=== PATIENT | female | born 1930 | race Caucasian/White ===

== ENCOUNTER 2016-11-06 20:03 | Observation (INO) | payer MEDICARE ==
[~2016-11-06] VITALS: Ht 152.4 cm; Wt 76.3 kg
[~2016-11-06 20:03] MED LIST: ALBU1AER INH; ALLE12TA PO; SIMV20 PO
[2016-11-06 20:06] VITALS: BP 157/81; PULSE 87; RESP 18; TEMP 97.9; O2SAT 98
[2016-11-06] MEDS ORDERED: SIMV40TA PO (20:23)
[2016-11-06] MEDS ORDERED: ALBUAER3 INH (20:23)
--- NOTE | 2016-11-06 20:27 | PD ---
HPI Chief Complaint: Fall Time Seen by Provider: 20:20 Travel History International Travel<30 days: No Contact w/Intl Traveler<30days: No Traveled to known affect area: No History of Present Illness HPI 86 years old female complains of right shoulder and right upper arm pain. Patient states that she fell this evening. Patient denies loss of consciousness. Patient denies any headache or neck pain. Patient denies any chest pain or shortness of breath. Patient denies abdominal pain. Patient denies any back pain. Patient denies extremity pain. Patient denies any focal weakness or numbness of the extremity. Patient states that the pain is sharp severe pain localized to right shoulder right upper arm. Patient denies any pain radiation. On a scale of 1-10 the pain is a 10. PFSH Past Medical History Cancer: No High Cholesterol: Yes COPD: Yes Diabetes: No Glaucoma: No Hepatitis: No Hiatal Hernia: No Hypertension: No Medical other: Yes (reflux) Respiratory: Yes (ASTHMA; COPD) Thyroid Disease: No Tetanus Vaccination: < 5 Years Influenza Vaccination: Yes Past Surgical History Eye Surgery: Yes (cataract) Pacemaker: No Social History Alcohol Use: Yes (occ) Tobacco Use: No Substance Use: No Allergies-Medications (Allergen,Severity, Reaction): Coded Allergies: No Known Allergies (Verified , 11/06/16) Reported Meds & Prescriptions Reported Meds & Active Scripts Active Reported Proair Hfa 8.5 GM Inh (Albuterol Sulfate) 90 Mcg/Act Aer 2 Puff INH BID PRN 108 mcg/actuation Simvastatin 40 Mg Tab 40 Mg PO HS Review of Systems General / Constitutional: No: Fever Eyes: No: Visual changes HENT: No: Headaches Cardiovascular: No: Chest Pain or Discomfort Respiratory: No: Shortness of Breath Gastrointestinal: No: Abdominal Pain Genitourinary: No: Dysuria Musculoskeletal: Positive: Pain Skin: No Rash Neurologic: No: Weakness Psychiatric: No: Depression Endocrine: No: Polydipsia Hematologic/Lymphatic: No: Easy Bruising Physical Exam Narrative GENERAL: Well-nourished, well-developed patient. SKIN: Warm and dry. HEAD: Normocephalic. EYES: No scleral icterus. No injection or drainage. NECK: Supple, trachea midline. No JVD or lymphadenopathy. CARDIOVASCULAR: Regular rate and rhythm without murmurs, gallops, or rubs. RESPIRATORY: Breath sounds equal bilaterally. No accessory muscle use. GASTROINTESTINAL: Abdomen soft, non-tender, nondistended. MUSCULOSKELETAL: Patient has moderate tenderness diffuse over the right shoulder and right upper arm. Mild tenderness on palpation right elbow. Full range of motion of the wrist and fingers. Sensory motor function distally intact. BACK: Nontender without obvious deformity. No CVA tenderness. Neurologic exam normal. Data Data Last Documented VS Vital Signs Date Time Temp Pulse Resp B/P Pulse Ox O2 Delivery O2 Flow Rate FiO2 11/06/16 20:23 Room Air 11/06/16 20:06 97.9 87 18 157/81 98 Orders Humerus (Min 2vws) (11/06/16 20:23) Shoulder, Limited(2vws) (11/06/16 20:23) Electrocardiogram (11/06/16 21:38) Complete Blood Count With Diff (11/06/16 21:38) Basic Metabolic Panel (Bmp) (11/06/16 21:38) Prothrombin Time / Inr (Pt) (11/06/16 21:38) Act Partial Throm Time (Ptt) (11/06/16 21:38) Urinalysis - C+S If Indicated (11/06/16 21:38) Chest, Single Ap (11/06/16 21:38) Iv Access Insert/Monitor (11/06/16 21:38) Ecg Monitoring (11/06/16 21:38) Oximetry (11/06/16 21:38) Sodium Chlor 0.9% 1000 Ml Inj (Ns 1000 M (11/06/16 21:45) MDM Medical Decision Making Medical Screen Exam Complete: Yes Emergency Medical Condition: Yes Interpretation(s) Last Impressions Shoulder X-Ray 11/06/162022 Signed Impressions: Service Date/Time: Sunday, November 06, 2016 20:56 - CONCLUSION: Comminuted fracture of the greater tuberosity and surgical neck of the right humerus. Adolfo Thacker MD Humerus X-Ray 11/06/162022 Signed Impressions: Service Date/Time: Sunday, November 06, 2016 20:52 - CONCLUSION: Comminuted and moderately displaced surgical neck and greater tuberosity fracture of the right humerus. Adolfo Thacker MD 21:40 PM. Differential Diagnosis Differential diagnosis including contusion, fracture, dislocation. Narrative Course 86 years old female with right shoulder and right upper arm injury. Status post fall. Sling and swath. Patient will be admitted to medical service and orthopedist consultation. Diagnosis Primary Impression: Fracture of right humerus Qualified Code: S42.231A - Closed 3-part fracture of surgical neck of right humerus, initial encounter Admitting Information Admitting Physician Requests: Admit Anthony Evans MD Nov 06, 2016 20:27
--- NOTE | 2016-11-06 21:10 | RADHPO ---
EXAM DATE/TIME: 11/06/2016 20:52 [facility] COMPARISON: No previous studies available for comparison. INDICATIONS : Right arm pain after fall. MEDICAL HISTORY : None. SURGICAL HISTORY : None. ENCOUNTER: Initial ACUITY: 1 day PAIN SCORE: 10/10 LOCATION: Right proximal humerus FINDINGS: There is a comminuted fracture of the proximal right humerus involving the surgical neck and greater tuberosity. There is lateral displacement and angulation of the head with respect to the shaft. There is also at least mild impaction/foreshortening. No subluxation. The rest of the right humerus is int act. CONCLUSION: Comminuted and moderately displaced surgical neck and greater tuberosity fracture of the right humdenyu radha Adolfo Thacker MD on November 06, 2016 at 21:07 Board Certified Radiologist. This report was verified electronically.
--- NOTE | 2016-11-06 21:11 | RADHPO ---
EXAM DATE/TIME: 11/06/2016 20:56 [facility] COMPARISON: No previous studies available for comparison. INDICATIONS : Right shoulder pain after fall. MEDICAL HISTORY : None. SURGICAL HISTORY : None. ENCOUNTER: Initial ACUITY: 1 day PAIN SCORE: 10/10 LOCATION: Right proximal shoulder FINDINGS: There is a comminuted fracture of the proximal right humerus involves the surgical neck and greater t uberosity. There is mild lateral displacement and moderate lateral angulation deformity. Most of the greater tuberosity fracture fragments are displaced superiorly. No subluxations are demonstrated. The glenoid and the rest of the scapula are intact. CONCLUSION: Comminuted fracture of the greater tuberosity and surgical neck of the right humerus. Adolfo Thacker MD on November 06, 2016 at 21:08 Board Certified Radiologist. This report was verified electronically.
[2016-11-06] MEDS ORDERED: ACETAMINOPHEN 325 MG TAB PO PRN (21:45)
[2016-11-06] MEDS ORDERED: SODIUM CHLOR 0.9% 1000 ML INJ 1,000 ML IV SCH (21:45)
[2016-11-06] MEDS ORDERED: SODIUM CHLORIDE 0.9% FLUSH 5 ML FLUSH IVF PRN (21:45)
[2016-11-06] MEDS ORDERED: RESP: ALBUTEROL 2.5 MG/IPRATROPIUM 0.5 MG NEB (PRN) NEB (21:45)
[2016-11-06] MEDS ORDERED: ONDANSETRON HCL 4 MG/2 ML VIAL IV PRN (21:45)
--- NOTE | 2016-11-06 22:12 | RADHPO ---
EXAM DATE/TIME: 11/06/2016 22:03 [facility] COMPARISON: No previous studies available for comparison. INDICATIONS : Short of breath. MEDICAL HISTORY : None. SURGICAL HISTORY : None. ENCOUNTER: Initial ACUITY: 1 day PAIN SCORE: 0/10 LOCATION: Bilateral chest FINDINGS: A single view of the chest demonstrates the lungs to be symmetrically aerated without evidence of mas s, infiltrate or effusion. The cardiomediastinal contours are unremarkable. Osseous structures are intact. CONCLUSION: No evidence of acute cardiopulmonary disease. Adolfo Thacker MD on November 06, 2016 at 22:10 Board Certified Radiologist. This report was verified electronically.
[2016-11-06 22:27] LABS: GLUCOSE,URINE NEG (NEG); KETONE, URINE NEG (NEG); NITRITE,URINE NEG (NEG); PH, URINE 6.5 (5.0-8.5)
[2016-11-06 22:27] LABS: AUTOMATED NEUTROPHIL # 11.6 TH/MM3 (1.8-7.7); BASOPHIL # 0.1 TH/MM3 (0-0.2); BASOPHIL % 0.7 % (0.0-2.0); EOSINOPHIL # 0.1 TH/MM3 (0-0.4); EOSINOPHIL % 0.9 % (0.0-4.0); HEMATOCRIT 38.4 % (35.0-46.0); HEMO FLAGS DIFF FINAL; LYMPH % 13.9 % (9.0-44.0); MEAN CELL VOLUME 86.8 FL (80.0-100.0); MEAN CORPUSCULAR HEMOGLOBIN 29.8 PG (27.0-34.0); MEAN CORPUSCULAR HGB CONC 34.3 % (32.0-36.0); MONO % 5.9 % (0.0-8.0); NEUT % 78.6 % (16.0-70.0); PLATELET COUNT 263 TH/MM3 (150-450); RED BLOOD COUNT 4.42 MIL/MM3 (4.00-5.30); RED CELL DISTRIBUTION WIDTH 12.5 % (11.6-17.2); WHITE BLOOD COUNT 14.7 TH/MM3 (4.0-11.0)
[2016-11-06 22:28] LABS: BLOOD, URINE MOD (NEG); URINE COLOR STRAW (YELLW/STRAW)
[2016-11-06 22:29] LABS: BACTERIA, URINE RARE /hpf; COMMENT (UR) CULT NOT INDICATED; CULTURE IF INDICATED CULT NOT INDICATED; RBC, URINE 0-3 /hpf (0-3); WBC, URINE 0-2 /hpf (0-5)
[2016-11-06 22:35] LABS: POTASSIUM 3.6 MEQ/L (3.5-5.1)
[2016-11-06 22:38] LABS: BICARBONATE 30.1 MEQ/L (21.0-32.0)
[2016-11-06 22:39] LABS: INTERNATIONAL NORMALIZED RATIO 0.9 RATIO; PROTHROMBIN TIME - PATIENT 9.8 SEC (9.8-11.6)
--- NOTE | 2016-11-06 23:19 | EKG ---
Date Performed: 11/06/2016 Time Performed: 21:46:54 PTAGE: 86 years EKG: Sinus rhythm rSr'(V1) - probable normal variant ST junctional depression is nonspecific Borderline ECG NO PREVIOUS TRACING DOCTOR: Umer Dey Interpretating Date/Time 11/06/2016 23:18:19
[2016-11-07] MEDS ORDERED: ACETAMINOPHEN/HYDROcodone 325 MG/5 MG TAB PO ONE
[2016-11-07] MEDS ORDERED: MORPHINE SULFATE 4 MG/ML INJ IV PUSH PRN
[2016-11-07 01:47] VITALS: BP 166/77; PULSE 85; RESP 20; TEMP 98.1; O2SAT 97
[2016-11-07 04:49] VITALS: BP 144/69; PULSE 87; RESP 20; TEMP 97.6; O2SAT 97
--- NOTE | 2016-11-07 06:48 | PD.ORT.PN ---
Subjective Subjective Remarks s/p fall in parking lot leaving [employer] right shoulder pain. no other complaints. Objective Vitals Vital Signs Date Time Temp Pulse Resp B/P Pulse Ox O2 Delivery O2 Flow Rate FiO2 11/07/16 04:49 97.6 87 20 144/69 97 11/07/16 01:47 98.1 85 20 166/77 97 11/06/16 20:23 Room Air 11/06/16 20:06 97.9 87 18 157/81 98 Result Diagram: 11/06/16219911/06/162199 Other Results Laboratory Tests Test 11/06/16 22:00 Prothrombin Time 9.8 SEC (9.8-11.6) Prothromb Time International 0.9 RATIO Ratio Imaging Last 24 hours Impressions Chest X-Ray 11/06/162137 Signed Impressions: Service Date/Time: Sunday, November 06, 2016 22:03 - CONCLUSION: No evidence of acute cardiopulmonary disease. Adolfo Thacker MD Shoulder X-Ray 11/06/162022 Signed Impressions: Service Date/Time: Sunday, November 06, 2016 20:56 - CONCLUSION: Comminuted fracture of the greater tuberosity and surgical neck of the right humerus. Adolfo Thacker MD Humerus X-Ray 11/06/162022 Signed Impressions: Service Date/Time: Sunday, November 06, 2016 20:52 - CONCLUSION: Comminuted and moderately displaced surgical neck and greater tuberosity fracture of the right humerus. Adolfo Thacker MD Objective Remarks RUE: +swelling of shoulder. tender to touch. no pain in elbow or hand. NVI Assessment & Plan Assessment and Plan 1) Right Proximal Humerus fx -nonop -ortho cleared for Dc -resume diet -f/u 7-10 days -consult dictated Duane Doherty Nov 07, 2016 06:48
[2016-11-07] MEDS ORDERED: CALCTAB19 PO (06:50)
[2016-11-07] MEDS ORDERED: VITA2000 PO (06:50)
[2016-11-07] MEDS ORDERED: HYDR-3288 PO (06:50)
[2016-11-07 07:49] VITALS: BP 140/65; PULSE 85; RESP 18; TEMP 98.3; O2SAT 97
[2016-11-07] MEDS ORDERED: ACETAMINOPHEN/HYDROcodone 325 MG/5 MG TAB PO PRN (08:45)
--- NOTE | 2016-11-07 08:49 | HHI.HP ---
[place] [facility] [facility] Primary [place] Physician Oliverio Ni MD Admission Diagnosis fracture right humerus Chief Complaint: Right humerus fracture Travel History International Travel<30 Days: No Contact w/Intl Traveler <30 Da: No Traveled to Known Affected Are: No History of Present Illness Mrs. Montalvo is a pleasant 86 y/o female with COPD, Hyperlipidemia, and CKD stage 2 who presented to the ED at [facility] on 11/06/16 with complaints of right shoulder and right upper arm pain. She states that she tripped and fell over a cement parking block yesterday evening leaving [employer]. She fell onto her right shoulder. Patient denies loss of consciousness, dizziness, lightheadedness, headache or neck pain. Patient denies any focal weakness or numbness of the extremity. In the ED the pt was found to have a comminuted and moderately displaced surgical neck and greater tuberosity fracture of the right humerus. Pt has been seen by Orthopedic surgery and has been recommended nonoperative management. Pts pain is currently controlled. She has been cleared for discharge by Ortho and pt reports that her daughter lives across the street and is available to stay with her and help with her ADLs. Review of Systems Constitutional: DENIES: Fever, Chills, Dizziness Ears, nose, mouth, throat: DENIES: Vertigo Respiratory: DENIES: Cough, Shortness of breath Cardiovascular: DENIES: Chest pain, Dyspnea on Exertion Gastrointestinal: DENIES: Abdominal pain Musculoskeletal: COMPLAINS OF: Joint pain Integumentary: DENIES: Rash Hematologic/lymphatic: DENIES: Bruising Neurologic: DENIES: Headache Past Family Social History Past Medical History Hyperlipidemia CKD, stage II Osteoarthritis COPD Past Surgical History Cataract surgery, right eye Reported Medications Calcium 600+D 200 (Calcium Carbonate-Vitamin D) 600-200 Mg-Unit Tab 1 Tab PO BID Vitamin D3 (Cholecalciferol) 2,000 Unit Cap 2,000 Units PO DAILY [place] (Hydrocodone-Acetaminophen) 7.5-325 mg Tab 1 Tab PO Q4H PRN Proair Hfa 8.5 GM Inh (Albuterol Sulfate) 90 Mcg/Act Aer 2 Puff INH BID PRN 108 mcg/actuation Simvastatin 40 Mg Tab 40 Mg PO HS Allergies: Coded Allergies: No Known Allergies (Verified , 11/06/16) Family History Noncontributory Social History Denies any alcohol, tobacco or illicit drug use Pt is very active and performs all her own ADLs normally 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 She has a daughter and granddaughter who live close to her. Physical Exam Vital Signs Vital Signs Date Time Temp Pulse Resp B/P Pulse Ox O2 Delivery O2 Flow Rate FiO2 11/07/16 07:49 98.3 85 18 140/65 97 11/07/16 04:49 97.6 87 20 144/69 97 11/07/16 01:47 98.1 85 20 166/77 97 11/06/16 20:23 Room Air 11/06/16 20:06 97.9 87 18 157/81 98 Physical Exam GENERAL: This is a well-nourished, well-developed patient, in no apparent distress. HEENT: Atraumatic. Normocephalic. No temporal or scalp tenderness. No scleral icterus. Airway patent. NECK: Trachea midline, supple, nontender. CARDIO: Regular RESP: CTA bilaterally. No wheezes, rales, or rhonchi. ABD: +BS, soft, non-tender, nondistended. EXT: Extremities without clubbing, cyanosis, or edema. Right arm in a sling NEURO: Awake and alert. Motor and sensory grossly within normal limits. Normal speech. Laboratory Laboratory Tests Test 11/06/16 11/06/16 22:00 22:20 White Blood Count 14.7 Red Blood Count 4.42 Hemoglobin 13.2 Hematocrit 38.4 Mean Corpuscular Volume 86.8 Mean Corpuscular Hemoglobin 29.8 Mean Corpuscular Hemoglobin 34.3 Concent Red Cell Distribution Width 12.5 Platelet Count 263 Mean Platelet Volume 8.1 Neutrophils (%) (Auto) 78.6 Lymphocytes (%) (Auto) 13.9 Monocytes (%) (Auto) 5.9 Eosinophils (%) (Auto) 0.9 Basophils (%) (Auto) 0.7 Neutrophils # (Auto) 11.6 Lymphocytes # (Auto) 2.0 Monocytes # (Auto) 0.9 Eosinophils # (Auto) 0.1 Basophils # (Auto) 0.1 CBC Comment DIFF FINAL Differential Comment Prothrombin Time 9.8 Prothromb Time International 0.9 Ratio Activated Partial 28.0 Thromboplast Time Sodium Level 143 Potassium Level 3.6 Chloride Level 105 Carbon Dioxide Level 30.1 Anion Gap 8 Blood Urea Nitrogen 19 Creatinine 1.10 Estimat Glomerular Filtration 47 Rate Random Glucose 114 Calcium Level 9.2 Urine Color STRAW Urine Turbidity CLEAR Urine pH 6.5 Urine Specific [place] 1.015 Urine Protein NEG Urine Glucose (UA) NEG Urine Ketones NEG Urine Occult Blood MOD Urine Nitrite NEG Urine Bilirubin NEG Urine Leukocyte Esterase NEG Urine RBC 0-3 Urine WBC 0-2 Urine Bacteria RARE Microscopic Urinalysis Comment CULT NOT INDICATED Result Diagram: 11/06/16219911/06/162199 Imaging Last Impressions Chest X-Ray 11/06/162137 Signed Impressions: Service Date/Time: Sunday, November 06, 2016 22:03 - CONCLUSION: No evidence of acute cardiopulmonary disease. Adolfo Thacker MD Shoulder X-Ray 11/06/162022 Signed Impressions: Service Date/Time: Sunday, November 06, 2016 20:56 - CONCLUSION: Comminuted fracture of the greater tuberosity and surgical neck of the right humerus. Adolfo Thacker MD Humerus X-Ray 11/06/162022 Signed Impressions: Service Date/Time: Sunday, November 06, 2016 20:52 - CONCLUSION: Comminuted and moderately displaced surgical neck and greater tuberosity fracture of the right humerus. Adolfo Thacker MD Septic Shock Reassessment Heart: Regular rate and rhythm Lungs: Clear Skin: Warm Peripheral Pulses: Bounding Right Radial Bounding Left Radial Bounding Right Popliteal Bounding Left Popliteal Bounding Right Dorsalis Pedis Bounding Left Dorsalis Pedis Bounding Right Posterior Tibial Bounding Left Posterior Tibial Capillary Refill: <2 seconds Assessment and Plan Problem List: (1) Fracture of right humerus Status: Acute Plan: - Pt tripped and fell in a parking lot at [employer] last night and sustained a comminuted and moderately displaced surgical neck and greater tuberosity fracture of the right humerus. - Pt has been evaluated by Orthopedic surgery and she is recommended nonoperative management - Pt has a sling in place. - Her pain is controlled currently - Ortho has written a script for pain meds - She has an appt to followup with Dr. Benjamin on 11/17/16 - We will make arrangements for HHC/PT and once cleared by Ortho she will need OT as well. - Pt is to followup with her PCP, Dr. Ni, in 1 week. - Discussed with her the importance of continuing to take deep breaths and will send her home with an incentive spirometer. Assessment and Plan Patient examined. Assessment and plan formulated with Kamille Rosas PA-C. I agree with the above. humerus fx after fall. d/c home. ortho f/u. [facility]. Problem Qualifiers (1) Fracture of right humerus: Qualified Code: S42.231A - Closed 3-part fracture of surgical neck of right humerus, initial encounter Kamille Rosas Nov 07, 2016 08:48 Jose Sheridan MD Nov 07, 2016 11:42
[2016-11-07] MEDS ORDERED: CHOLECALCIFEROL (VIT D3) 1000 UNIT TAB PO SCH (09:00)
[2016-11-07] MEDS ORDERED: CALCIUM/VITAMIN D 250 MG/125 U TAB PO SCH (09:00)
[2016-11-07] MEDS ORDERED: SODIUM CHLORIDE 0.9% FLUSH 5 ML FLUSH IVF SCH (09:00)
--- NOTE | 2016-11-07 09:22 | HHI.DCPOC ---
Discharge Care Plan Diagnosis: (1) Fracture of right humerus Goals to Promote Your Health * To prevent worsening of your condition and complications * To maintain your health at the optimal level Directions to Meet Your Goals Take your medications as prescribed Follow your dietary instruction Follow activity as directed Keep your appointments as scheduled Take your immunizations and boosters as scheduled If your symptoms worsen call your PCP, if no PCP go to Urgent Care Center or Emergency Room Smoking is Dangerous to Your Health. Avoid second hand smoke Call the 24-hour hour crisis hotline for domestic abuse at Kamille Rosas Nov 07, 2016 09:21
--- NOTE | 2016-11-07 09:32 | HHI.FF ---
Face to Face Verification Diagnosis: (1) Fracture of right humerus Physical Therapy Order: Evaluate and Treat Instructions: Pt is to avoid any use of her RUE until cleared by Ortho Home Health Nursing Order: Medical education Nursing assessment with vital signs I have seen patient Princess Hernandez on 11/07/16. My clinical findings support the need for the requested home health care services because: Limited ability to care for self I certify that my clinical findings support that this patient is homebound because: Unsafe to leave home unassisted Kamille Rosas Nov 07, 2016 09:32
[2016-11-07 09:35] VITALS: O2SAT 97
--- NOTE | 2016-11-07 12:26 | MB ---
cc: BRANT MERIDA DATE OF CONSULTATION 11/07/2016 REASON FOR CONSULTATION Right proximal humerus fracture. CONSULTING PHYSICIAN Dr. Jose Sheridan HISTORY Princess is a pleasant 86-year female who has a history of mild COPD and hypertension and stage II renal failure. She was walking through a parking leaving [employer] when she tripped over a parking block and fell. She landed on her right side. She had immediate right shoulder pain. She had no dizziness, syncope or loss of consciousness. She presented to the emergency room where x-rays revealed a mildly comminuted right proximal humerus fracture. She is currently awake and alert in the emergency department. She complains of pain in the right shoulder. Pain is worse with movement and is improved with rest. PAST MEDICAL HISTORY ILLNESSES 1. High cholesterol 2. Renal failure 3. Osteoarthritis 4. COPD SURGERIES Cataract surgery right eye MEDICATIONS Include: 1. Calcium 2. Vitamin D 3. [place] 4. ProAir 5. Simvastatin ALLERGIES None SOCIAL HISTORY The patient denies alcohol, tobacco or drug use. She lives at home alone. 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 She denies alcohol, tobacco back or drug use. REVIEW OF SYSTEMS The patient denies headache, visual changes, neck pain, chest pain, shortness of breath, abdominal pain, nausea, vomiting, recent weight loss or numbness and tingling of extremities. She complains of right arm pain. She denies bowel or bladder incontinence. PHYSICAL EXAMINATION The patient is a pleasant 86-year female who is awake and alert. She is alert and oriented x3. She appears well-developed and well-nourished. VITAL SIGNS: Temperature 98.3, pulse 85, respirations 18, blood pressure 140/65, O2 sat 97% on room air. HEAD: The patient is normocephalic. EYES: Pupils are equal. NECK: Soft, nontender. Trachea is midline. ABDOMEN: Soft, nontender, nondistended. EXTREMITIES: Examination of the right arm reveals pain with any shoulder motion. There is mild swelling around the arm. Skin is intact. She has minimal tenderness around her elbow, wrist or hand. She has intact sensation in all fingers. She has good cap refill in all fingers. Radial pulses palpable. Examination of the left arm reveals no pain with shoulder, elbow or wrist motion. Skin is intact. Radial pulses palpable. Sensation is intact in all fingers. Examination of bilateral lower extremities reveals no significant pain with hip, knee or ankle motion. Skin is intact. Dorsalis pedis pulses are palpable. Sensation is intact to both feet. X-RAYS X-rays of right shoulder were reviewed. X-rays reveal a three-part proximal humerus fracture. There is impaction of the femoral head. The glenohumeral joint is reduced. IMPRESSION Mildly displaced right proximal humeral fracture. PLAN Treatment options were discussed with the patient. At this point, I discussed surgical and nonsurgical options. The surgical options would include open reduction internal fixation, shoulder hemiarthroplasty, or reverse total shoulder arthroplasty. At this point, the patient would like to avoid surgery if possible. At this point, I feel that is a reasonable choice given the fracture is reasonably well-aligned. She understands that she will have some limited range of motion. I will ask that she follow up in the office in 7-10 days for repeat x-rays of her shoulder. If fracture displaces further, then surgical intervention may become necessary. All questions were answered. A mid-level provider in my office, nurse practitioner or PA, may see this patient on a follow-up basis and continue to implement the objective of this plan including: Starting or adjusting medications, injections of muscle, tendon, bursa or joints, cast application, orthotic or brace application, physical therapy, further radiographic studies including x-ray, MRI, CT, ultrasounds or bone scan, vascular studies, neurologic studies, or other specialist consultations, and proceeding with surgical management as appropriate. MD DENNY Davidson/AZALIA /11:28 AM /12:19 PM LISBETH
[2016-11-07] MEDS ORDERED: PRAVASTATIN SOD 80 MG TAB PO SCH (21:00)
== END 2016-11-07 13:58 | disposition home or self-care (01) ==
LOC: PHED 20:03 → UNDOADMIN 21:45 → PHEDA 21:45 → NEPHCDU 11-07 01:50 → INTOOBSV 11-07 08:43 → PHEDA 11-07 08:43 → UNDODISIN 11-07 13:58
PROVIDERS: ADMIT Hospitalist; ATTEND Hospitalist
DX: S42.231A 3-part fracture of surgical neck of right humerus, initial encounter for closed fracture (principal); M79.601 Pain in right arm; Y92.481 Parking lot as the place of occurrence of the external cause; W01.0XXA Fall on same level from slipping, tripping and stumbling without subsequent striking against object, initial encounter; E78.00 Pure hypercholesterolemia, unspecified; J44.9 Chronic obstructive pulmonary disease, unspecified; K21.9 Gastro-esophageal reflux disease without esophagitis; J45.909 Unspecified asthma, uncomplicated; N18.2 Chronic kidney disease, stage 2 (mild); I12.9 Hypertensive chronic kidney disease with stage 1 through stage 4 chronic kidney disease, or unspecified chronic kidney disease; E78.5 Hyperlipidemia, unspecified
CPT/HCPCS: 71010; 73030; 73060; 80048; 81001; 85025; 85610; 85730; 93005; 97163; 99285; G0378; J7030